=== PATIENT | female | born 1990 | race Hispanic/Latino ===

== ENCOUNTER → 2017-01-15 | Outpatient (CLI) | payer OTHER ==
--- NOTE | 2017-01-15 17:24 | REP ---
MRI LEFT WRIST WITH AND WITHOUT CONTRAST: TECHNIQUE: Multiple sequences obtained prior to and following the intravenous administration of 18 mL gadolinium. The patient has a painful palpable abnormality in the region of the left wrist and the area is marked on the skin. At the site of the palpable abnormality is an oval soft tissue mass which is isointense to muscle on T1 and hyperintense on T2-weighted images. It measures approximately 3.3 x 1.8 x 2.1 cm. There is heterogeneous enhancement following the intravenous administration of gadolinium. The mass is directly anterior to the distal shaft of the radius and is surrounded by the flexor muscles and tendons. It is just deep to the flexor carpi radialis and palmaris longus muscle and tendons. The visualized distal radius and ulna appear normal. No other soft tissue nodule or fluid collection is seen. IMPRESSION: Solid enhancing soft tissue mass at the site of the reported palpable abnormality as discussed above. It is located directly anterior to the distal radial shaft between the adjacent flexor muscles and tendons. It is just deep to the flexor carpi radialis and palmaris muscle and tendons. Differential diagnosis would include both benign and malignant soft tissue masses. Biopsy is recommended. Signed by Gilles Caldwell MD 01/15/2017 08:14 P
== END ==
LOC: M RAD 14:07
PROVIDERS: ATTEND Physician Assistant Medical
DX: R22.32 Localized swelling, mass and lump, left upper limb (principal)
CPT/HCPCS: 73223; A9576